=== PATIENT | male | born 1955 | race Two or more races ===

== ENCOUNTER 2020-02-29 06:37 | Day surgery (SDC) | payer OTHER ==
[~2020-02-29] VITALS: Ht 182.9 cm; Wt 88.9 kg
[~2020-02-29 06:37] MED LIST: AMLODIPINE BESY10 MG ORAL; ASPIRIN81 MG ORAL; DIOVAN40 MG ORAL; GLIPIZIDE XL10 M1 ORAL; LOSARTAN POTAS100 MG ORAL; METFORMIN HCL1000 M1 ORAL
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
[2020-02-29 07:00] VITALS: BP 164/92
--- NOTE | 2020-02-29 07:00 | Pre-Procedure Note/Attestation ---
Pre-Procedure Note/Attestation Complete Prior to Procedure Planned Procedure: left Procedure Narrative: Examination of the upper GI tract via endoscopy and obtaining biopsy Indications for Procedure Pre-Operative Diagnosis: R/O Peptic Ulcer/ Gastritis/Esophagitis Attestation I attest that I discussed the nature of the procedure; its benefits; risks and complications; and alternatives (and the risks and benefits of such alternatives ), prior to the procedure, with the patient (or the patient's legal representative phlebotomy services). I attest that, if there was a reasonable possibility of needing a blood transfusion, the patient (or the patient's legal representative phlebotomy services) was given the [place] [facility] [employer] [facility] standardized written summary, pursuant to the Renny Chaparro Blood Safety Act ([place] Health and Safety Code # 1645, as amended). I attest that I re-evaluated the patient just prior to the surgery and that there has been no change in the patient's H&P, except as documented below: Jesse Alcala MD Feb 29, 2020 07:00
[2020-02-29] MEDS ORDERED: LR 1000ml 1,000 ML IVLG SCH (07:10)
--- NOTE | 2020-02-29 07:11 | Anethesia Preoperative Eval ---
Anesthesia Pre-op PMH/ROS General Date of Evaluation: Feb 29, 2020 Time of Evaluation: 07:11 Anesthesiologist: fahad ASA Score: ASA 3 Mallampati Score Class I : Soft palate, uvula, fauces, pillars visible Class II: Soft palate, uvula, fauces visible Class III: Soft palate, base of uvula visible Class IV: Only hard plate visible Mallampati Classification: Class II Surgeon: Cari Diagnosis: abdominal pain Surgical Procedure: egd Anesthesia History: none Social History: smoking - nonsmoker Family History: no anesthesia problems Allergies: Coded Allergies: No Known Allergies (Unverified , 10/14/19) Medications: see eMAR Patient NPO?: Yes Past Medical History Cardiovascular: Reports: HTN Endocrine: Reports: DM HEENT: Reports: cataract (R) PSxH Narrative: right eye cataract sx Anesthesia Pre-op Phys. Exam Physician Exam Last Vital Signs Date Time Temp Pulse Resp B/P (MAP) Pulse Ox O2 Delivery O2 Flow Rate FiO2 02/29/20 07:00 96.9 92 20 164/92 99 Room Air Constitutional: NAD Neurologic: CN 2-12 intact Cardiovascular: RRR Respiratory: CTA Gastrointestinal: S/NT/ND Airway Exam Mallampati Score: Class II MO: limited Neck: flexible TMD: 2fb ROM: limited Anesthesia Pre-op A/P Labs Microbiology Date/Time Source Procedure Growth Status 02/25/20 09:30 Nasopharynx Coronavirus COVID-19 PCR ([facility]) - Final Complete Risk Assessment & Plan Assessment: asa3 Plan: mac Status Change Before Surgery: No Pre-Antibiotics Drug: Ivette Villalba MD Feb 29, 2020 07:11
[2020-02-29] MEDS ORDERED: DiphenhydrAMINE 50mg/ml Inj IVP PRN (07:15)
[2020-02-29] MEDS ORDERED: Atropine Inj 1mg/10ml Syr IV PRN (07:15)
[2020-02-29] MEDS ORDERED: fentaNYL 100 mcg/2 mL IV PRN (07:15)
[2020-02-29] MEDS ORDERED: Midazolam 2mg/2ml Inj IVP PRN (07:15)
--- NOTE | 2020-02-29 07:44 | Discharge Instructions ---
Discharge Instructions Discharge Instructions Follow up with: No need to follow with the doctor. Report will be sent. For Congestive Heart Failure Reminder Report to your physician any weight gain of 5 pounds or more in one week. Jesse Alcala MD Feb 29, 2020 07:44
[2020-02-29] MEDS ORDERED: Lidocaine 1% MPF 10mg/ml 5ml ONE (08:00)
[2020-02-29] MEDS ORDERED: LR 1000ml ONE (08:00)
--- NOTE | 2020-02-29 08:06 | Endoscopy Procedure Note ---
Endoscopy Procedure Note General Indication for Procedure: Abdominal pains/GERDs, dysphagia Procedures Performed: EGD - Mild gastritis, otherwise normal Upper GI. Endoscopy. Bopsy was obtained from gastric body/greator curvator. Specimen: yes Estimated Blood Loss: none Anesthesia Anesthesiologist: Dr. Jenkins Anesthesia: moderate sedation Medications Medication Given: see anesthesia record Inserted Devices Implant(s) used?: No Quality Quality of Bowel Preparation: Excellent Was there any complications?: No GI Core Measures 50 yrs or older w/o bx or poly: Not Applicable 10yrs. F/U recommended: Not Applicable If not recommended, why?: Med reason:<3 yrs.: System Reason:<3 yrs.: Jesse Alcala MD Feb 29, 2020 08:06
[2020-02-29 08:13] VITALS: BP 155/90
[2020-02-29 08:15] VITALS: BP 160/92
[2020-02-29 08:20] VITALS: BP 166/92
--- NOTE | 2020-02-29 08:29 | Immediate Post-Op Evaluation ---
Immediate Post-Op Evalulation Immediate Post-Op Evalulation Procedure: egd Date of Evaluation: Feb 29, 2020 Time of Evaluation: 08:25 IV Fluids: 450ml lr Blood Products: none Estimated Blood Loss: negligible Blood Pressure Systolic: 155 Blood Pressure Diastolic: 90 Pulse Rate: 70 Respiratory Rate: 18 O2 Sat by Pulse Oximetry: 100 Temperature (Fahrenheit): 97.2 Pain Score (1-10): 0 Nausea: No Vomiting: No Complications none Patient Status: awake, reacts, patent Hydration Status: adequate Drug: Ivette Villalba MD Feb 29, 2020 08:29
--- NOTE | 2020-02-29 08:30 | 48 Hour Post Anesthesia Eval ---
Post Anesthesia Evaluation Procedure: egd Date of Evaluation: Feb 29, 2020 Time of Evaluation: 08:27 Blood Pressure Systolic: 166 0: 92 Pulse Rate: 69 Respiratory Rate: 18 Temperature (Fahrenheit): 97.2 O2 Sat by Pulse Oximetry: 100 Airway: patent Nausea: No Vomiting: No Pain Intensity: 0 Hydration Status: adequate Cardiopulmonary Status: stable Mental Status/LOC: patient returned to baseline Post-Anesthesia Complications: none Follow-up care needed: N/A Ivette White MD Feb 29, 2020 08:30
[2020-02-29 08:35] VITALS: BP 158/88
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
--- NOTE | 2020-02-29 10:15 | Operative Note - Dictated ---
DATE OF OPERATION: 02/29/2020 SURGEON: Jesse Alcala MD. PROCEDURE: Esophagogastroduodenoscopy with biopsy. PREOPERATIVE DIAGNOSES: Abdominal pain and chronic acid reflux with dysphagia, rule out peptic ulcer disease, gastritis. POSTOPERATIVE DIAGNOSIS: Mild generalized gastritis, otherwise normal upper GI endoscopy. Biopsy was taken per random from gastric body. MEDICATION USED: Per Dr. Jenkins, anesthesiologist. INSTRUMENT: GIF Olympus upper GI video endoscope. DESCRIPTION OF PROCEDURE: The patient after arriving in the endoscopy unit, was told about risks and benefits of the procedure, that he accepted and signed informed consent. At this time, he was put in the left lateral decubitus position. After adequate IV sedation, the scope was gently passed through the cricopharyngeal area, was lodged in the upper esophagus and was gradually advanced towards gastroesophageal junction. The entire length of esophagus looked normal without any pathology. No evidence of varices, inflammatory process, ulceration, stricture, etc. was found. GE junction also looked within normal limits without any evidence of Irvin's or hiatal hernia. At this time, the scope was advanced into the stomach. Gastric cavity was distended and gradually the areas of the upper and mid and lower part of the stomach were examined. Basically revealed evidence of mild inflammatory process with some mild erythema, but no ulcers, tumors, or polyps were found. A retroflexion maneuver was also applied in the area of the gastroesophageal junction was examined in a closer fashion, which revealed no other abnormalities. Finally, after obtaining one biopsy from gastric body over the greater curvature posterior wall, the scope was gradually advanced toward the antrum from there into pylorus and first and second portion of duodenum were found also to be within normal limits. Finally, the scope was pulled out and the procedure was terminated. The patient tolerated the procedure well and left the endoscopy room in a good condition. Jesse Alcala M.D. DR: LUDWIN JOB#: [id number] CC:
== END 2020-02-29 09:15 | disposition home or self-care (01) ==
LOC: GAS 06:37
DX: R10.9 Unspecified abdominal pain (principal); K29.50 Unspecified chronic gastritis without bleeding; K21.9 Gastro-esophageal reflux disease without esophagitis; R13.10 Dysphagia, unspecified; E11.9 Type 2 diabetes mellitus without complications; I10 Essential (primary) hypertension; Z79.84 Long term (current) use of oral hypoglycemic drugs; Z79.82 Long term (current) use of aspirin; Z79.899 Other long term (current) drug therapy
CPT/HCPCS: 43239; 94003; J2704; J7120; 94150